=== PATIENT | male | born 1970 | race Caucasian/White ===

== ENCOUNTER 2018-03-07 21:44 | Emergency (ER) | payer MEDICAID ==
[2018-03-08] MEDS: TRIMETHOPRIM/SULFAMETHOX (DS) TAB PO (00:13)
[2018-03-08] MEDS: CEPHALEXIN 500 MG CAP PO (00:13)
== END 2018-03-08 00:29 | disposition home or self-care (01) ==
LOC: FTE 03-08 00:29
DX: L02.612 Cutaneous abscess of left foot (principal); E11.9 Type 2 diabetes mellitus without complications
CPT/HCPCS: 10060; 99283-25